=== PATIENT | male | born 1980 | race American Indian/Alaskan Native ===

== ENCOUNTER 2017-08-13 07:41 | Emergency (ER) | payer SELFPAY ==
[2017-08-13 07:45] VITALS: BP 122/81
--- NOTE | 2017-08-13 09:39 | Emergency Department Report ---
ED ENT HPI - General Chief complaint: Sore Throat Stated complaint: SORE THROAT Time Seen by Provider: 08/13/17 09:30 Source: patient Mode of arrival: Ambulatory Limitations: No Limitations - History of Present Illness MD complaint: sore throat -: days(s) Severity: moderate Severity scale (0 -10): 4 Quality: sharp Improves with: none Associated Symptoms: pain with swallowing, sore throat. denies: fever, cough, gum swelling, toothache, tinnitus, hearing loss, discharge from ear, rhinorrhea - Related Data Allergies Allergy/AdvReac Type Severity Reaction Status Date / Time No Known Allergies Allergy Unverified 08/13/17 07:42 ED Dental HPI - General Chief complaint: Sore Throat Stated complaint: SORE THROAT Time Seen by Provider: 08/13/17 09:30 Source: patient Mode of arrival: Ambulatory Limitations: No Limitations - Related Data Allergies Allergy/AdvReac Type Severity Reaction Status Date / Time No Known Allergies Allergy Unverified 08/13/17 07:42 ED Review of Systems ROS: Stated complaint: SORE THROAT Other details as noted in HPI Comment: All other systems reviewed and negative ENT: throat pain Cardiovascular: denies: chest pain, palpitations Gastrointestinal: denies: abdominal pain, nausea, vomiting ED Past Medical Hx - Past Medical History Previous Medical History?: No - Surgical History Past Surgical History?: No - Social History Smoking Status: Current Every Day Smoker Substance Use Type: Non Opiate Pain ED Physical Exam - General Limitations: No Limitations General appearance: alert, in no apparent distress - Head Head exam: Present: atraumatic, normocephalic - ENT ENT exam: Present: other (pharyngeal erythema, no tonsillar exudate) - Respiratory Respiratory exam: Present: normal lung sounds bilaterally. Absent: respiratory distress, wheezes, rales, rhonchi, stridor, chest wall tenderness, accessory muscle use, decreased breath sounds, prolonged expiratory - Cardiovascular Cardiovascular Exam: Present: regular rate, normal rhythm, normal heart sounds - GI/Abdominal GI/Abdominal exam: Present: soft, normal bowel sounds. Absent: distended, tenderness, guarding, rebound, rigid, organomegaly, mass, bruit, pulsatile mass - Extremities Exam Extremities exam: Present: normal inspection, full ROM, normal capillary refill - Neurological Exam Neurological exam: Present: alert, oriented X3, CN II-XII intact, normal gait - Skin Skin exam: Present: warm, dry, intact, normal color ED Course Vital Signs 08/13/17 07:43 Temperature 98.6 F Pulse Rate 90 Respiratory 18 Rate Blood Pressure 122/81 O2 Sat by Pulse 97 Oximetry ED Medical Decision Making - Medical Decision Making Patient is strep test is negative. Patient's symptoms is most likely due to allergy. Patient stated that he just recently moved from [place] to [place]. I will provide patient with flonase and Zyrtec. Critical care attestation.: If time is entered above; I have spent that time in minutes in the direct care of this critically ill patient, excluding procedure time. ED Disposition Clinical Impression: Allergic rhinitis Disposition: DC-01 TO HOME OR SELFCARE Is pt being admited?: No Condition: Stable Instructions: Allergic Rhinitis (ED) Referrals: PRIMARY CARE, [Primary Care Provider] - 3-5 Days
== END 2017-08-13 10:23 | disposition home or self-care (01) ==
LOC: ED 07:41
DX: J30.9 Allergic rhinitis, unspecified (principal); F17.200 Nicotine dependence, unspecified, uncomplicated
CPT/HCPCS: 87116; 87430

== ENCOUNTER 2021-01-19 11:37 | Emergency (ER) | payer OTHER ==
[2021-01-19 11:58] VITALS: BP 139/84
[2021-01-19] MEDS ORDERED: IBUPROFEN 800 MG TAB PO ONE (12:01)
--- NOTE | 2021-01-19 12:20 | Emergency Department Report ---
ED Upper Extremity Inj HPI - General Chief Complaint: Extremity Injury, Upper Stated Complaint: POSS BROKEN RIGHT HAND Time Seen by Provider: 01/19/21 12:00 Source: patient Mode of arrival: Ambulatory Limitations: No Limitations - History of Present Illness Initial Comments: This is a 40-year-old male nontoxic, well nourished in appearance, no acute sig ns of distress presents to the ED with c/o of right hand pain several days. Patient stated that a metal beam hit his right hand at work. Patient denies any other injuries or trauma. Patient denies any numbness, tingling, fever, chills, nausea, vomiting, chest pain, shortness of breath, headache, stiff neck. Patient denies any joint swelling or joint redness. Patient has some decreased range of motion due to pain. Patient denies any allergies or significant past medical history. MD Complaint: Injury to:: right, hand -: days(s) Other Extremity Injury: Hand: Right Place: work Severity scale (0 -10): 8 Improves With: immobilization Worsens With: movement of extremity Context: direct blow Associated Symptoms: denies other symptoms. denies: weakness, numbness, neck pain, suspects foreign body, nausea/vomiting, heard/felt popping sensat - Related Data Previous Rx's Medication Instructions Recorded Last Taken Type Cetirizine HCl [Zyrtec] 10 mg PO DAILY #30 tablet 08/13/17 Unknown Rx Fluticasone [Flonase] 1 spray NS QDAY #1 bottle 08/13/17 Unknown Rx Naproxen 500 mg PO Q12H PRN #12 tablet 01/19/21 Unknown Rx Allergies Allergy/AdvReac Type Severity Reaction Status Date / Time No Known Allergies Allergy Unverified 08/13/17 07:42 ED Review of Systems ROS: Stated complaint: POSS BROKEN RIGHT HAND Other details as noted in HPI Comment: All other systems reviewed and negative Constitutional: denies: chills, fever Eyes: denies: eye pain, eye discharge, vision change ENT: denies: ear pain, throat pain Respiratory: denies: cough, shortness of breath, wheezing Cardiovascular: denies: chest pain, palpitations Endocrine: no symptoms reported Gastrointestinal: denies: abdominal pain, nausea, diarrhea Genitourinary: denies: urgency, dysuria Musculoskeletal: denies: back pain, joint swelling, arthralgia Skin: denies: rash, lesions Neurological: denies: headache, weakness, paresthesias Psychiatric: denies: anxiety, depression Hematological/Lymphatic: denies: easy bleeding, easy bruising ED Past Medical Hx - Past Medical History Previous Medical History?: No - Surgical History Past Surgical History?: No - Social History Smoking Status: Current Every Day Smoker Substance Use Type: Non Opiate Pain - Medications Home Medications: Home Medications Medication Instructions Recorded Confirmed Last Taken Type Cetirizine HCl [Zyrtec] 10 mg PO DAILY #30 tablet 08/13/17 Unknown Rx Fluticasone [Flonase] 1 spray NS QDAY #1 bottle 08/13/17 Unknown Rx Naproxen 500 mg PO Q12H PRN #12 tablet 01/19/21 Unknown Rx ED Physical Exam - General Limitations: No Limitations General appearance: alert, in no apparent distress - Head Head exam: Present: atraumatic, normocephalic - Eye Eye exam: Present: normal appearance - Neck Neck exam: Present: normal inspection, full ROM. Absent: lymphadenopathy - Respiratory Respiratory exam: Absent: respiratory distress - Cardiovascular Cardiovascular Exam: Present: regular rate - Extremities Exam Extremities exam: Present: full ROM (with pain), tenderness, normal capillary refill. Absent: joint swelling, calf tenderness - Expanded Upper Extremity Exam Right General: Present: normal inspection Shoulder Exam: Present: normal inspection, full ROM. Absent: tenderness, swelling Upper Arm exam: Present: normal inspection, full ROM. Absent: tenderness, swelling Elbow exam: Present: normal inspection, full ROM. Absent: tenderness, swelling Forearm Wrist exam: Present: normal inspection, full ROM. Absent: tenderness, swelling, abrasion, laceration, ecchymosis, deformity, crepidus, dislocation, tenderness over anatomical snuff box, pain with axial thumb loading Hand Wrist exam: Present: full ROM (with pain), tenderness, swelling, ecchymosis. Absent: abrasion, laceration, deformity, crepidus, dislocation, erythema, amputation, nail avulsion, subungual hematoma Vascular: Present: normal capillary refill. Absent: vascular compromise (Neurovascular within normal limits) - Back Exam Back exam: Present: full ROM - Neurological Exam Neurological exam: Present: alert, oriented X3, normal gait - Psychiatric Psychiatric exam: Present: normal affect, normal mood - Skin Skin exam: Present: warm, dry, intact, normal color. Absent: rash ED Course Vital Signs 01/19/21 11:53 Temperature 97.6 F Pulse Rate 69 Respiratory 16 Rate Blood Pressure 139/84 [Left] O2 Sat by Pulse 96 Oximetry - Reevaluation(s) Reevaluation #1: 01/19/21 12:19 Patient is speaking in full sentences with no signs of distress noted. ED Medical Decision Making - Radiology Data [address] [address] XRay Report Signed Patient: LIZET APPIAH MR#: [id number] : 1980 Acct:[id number] Age/Sex: 40 / M ADM Date: 01/19/21 Loc: ED Attending Dr: Ordering Physician: ISAI VAUGHAN Date of Service: 01/19/21 Procedure(s): XR hand 3+V RT Accession Number(s): [id number] cc: ISAI VAUGHAN Fluoro Time In Minutes: XR hand 3+V RT, XR wrist 3+V RT INDICATION / CLINICAL INFORMATION: hand pain. COMPARISON: None available. FINDINGS: 3 views of the right hand demonstrate acute fracture of the right fifth metacarpal shaft with apex dorsal angulation. No evidence of intra-articular involvement. No additional fracture is identified. No joint subluxation. 4 views of the right wrist demonstrate no acute fracture or malalignment. Small subchondral cyst is present at the radial aspect of the lunate. 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 IMPRESSION: Acute angulated right fifth metacarpal fracture. Signer Name: Cony Quezada MD Signed: 01/19/2021 12:33 PM Workstation Name: [id number] Transcribed By: JS Dictated By: CONY QUEZADA MD Electronically Authenticated By: CONY QUEZADA MD Signed Date/Time: 01/19/21 1233 DD/ 1231 TD/TT: [address] [address] XRay Report Signed Patient: LIZET APPIAH MR#: [id number] : 1980 Acct:[id number] Age/Sex: 40 / M ADM Date: 01/19/21 Loc: ED Attending Dr: Ordering Physician: VIRAJ JOHN NP Date of Service: 01/19/21 Procedure(s): XR wrist 3+V RT Accession Number(s): [id number] cc: VIRAJ JOHN NP Fluoro Time In Minutes: XR hand 3+V RT, XR wrist 3+V RT INDICATION / CLINICAL INFORMATION: hand pain. COMPARISON: None available. FINDINGS: 3 views of the right hand demonstrate acute fracture of the right fifth metacarpal shaft with apex dorsal angulation. No evidence of intra-articular involvement. No additional fracture is identified. No joint subluxation. 4 views of the right wrist demonstrate no acute fracture or malalignment. Small subchondral cyst is present at the radial aspect of the lunate. 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 IMPRESSION: Acute angulated right fifth metacarpal fracture. Signer Name: Cony Quezada MD Signed: 01/19/2021 12:33 PM Workstation Name: [id number] Transcribed By: JS Dictated By: CONY QUEZADA MD Electronically Authenticated By: CONY QUEZADA MD Signed Date/Time: 01/19/21 1233 DD/ 1231 TD/TT: - Medical Decision Making This is a 40-year-old male that presents with right hand fracture. Patient is stable and was examined by me. I referred patient to an orthopedic doctor for further evaluation for possible MRI. X-ray has been obtained and dictated by the radiologist. Patient is notified of the x-ray report with noted by the patient. Patient does have normal ROM with some tenderness and swelling. no joint redness or swelling. Not warm to touch. No signs of cellulites present. Patient received ulnar gutter boxer splint. Post splint assessment: neurovasular intact; normal cap refill <2 second; normal sensation; denies decreaed sensation; normal ROM of digits. Patient was instructed to RICE therapy. Patient received Donie for pain and stated family member will drive patient home after discharge due to possible drowsiness. Patient is discharged with Naproxen. At time of discharge, the patient does not seem toxic or ill in appearance. No acute signs of distress noted. Patient agrees to discharge treatment plan of care. No further questions noted by the patient. Critical care attestation.: If time is entered above; I have spent that time in minutes in the direct care of this critically ill patient, excluding procedure time. ED Disposition Clinical Impression: Fracture of metacarpal of right hand, closed Qualifiers: Encounter type: initial encounter Metacarpal bone: fifth Metacarpal location: unspecified portion of metacarpal Fracture alignment: nondisplaced Qualified Code(s): S62.306A - Unspecified fracture of fifth metacarpal bone, right hand, initial encounter for closed fracture Disposition: HOME / SELF CARE / HOMELESS Is pt being admited?: No Does the pt Need Aspirin: No Condition: Stable Instructions: Cast or Splint Care, Adult, [id number], Metacarpal Fracture Additional Instructions: Follow-up with a orthopedic doctor in 3-5 days or if symptoms worsen and continue return to emergency room as soon as possible. No physical activity that extremity until cleared by orthopedic doctor Prescriptions: Naproxen 500 mg PO Q12H PRN #12 tablet PRN Reason: Pain , Severe (7-10) Referrals: PRIMARY CAREMD [Referring] - 3-5 Days KAMILLA STRANGE MD [Staff Physician] - 3-5 Days Forms: Work/School Release Form(ED) Time of Disposition: 13:31
--- NOTE | 2021-01-19 12:38 | XRay Report ---
XR hand 3+V RT, XR wrist 3+V RT INDICATION / CLINICAL INFORMATION: hand pain. COMPARISON: None available. FINDINGS: 3 views of the right hand demonstrate acute fracture of the right fifth metacarpal shaft with apex do rsal angulation. No evidence of intra-articular involvement. No additional fracture is identified. No joint subluxation. 4 views of the right wrist demonstrate no acute fracture or malalignment. Small subchondral cyst is p resent at the radial aspect of the lunate. 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 IMPRESSION: Acute angulated right fifth metacarpal fracture. Signer Name: Reese Quezada MD Signed: 01/19/2021 12:33 PM Workstation Name: [id number]
[2021-01-19] MEDS ORDERED: HYDROcodone/ACETAMINOPHEN 10-325MG TAB PO ONE (12:56)
== END 2021-01-19 14:14 | disposition home or self-care (01) ==
LOC: ED 11:37
DX: S62.309A Unspecified fracture of unspecified metacarpal bone, initial encounter for closed fracture (principal); F17.200 Nicotine dependence, unspecified, uncomplicated; W22.8XXA Striking against or struck by other objects, initial encounter; Y93.89 Activity, other specified; Y92.89 Other specified places as the place of occurrence of the external cause; Y99.0 Civilian activity done for income or pay
CPT/HCPCS: 99283